=== PATIENT | male | born 1975 ===

== ENCOUNTER 2023-03-24 16:18 | Outpatient (REF) | payer OTHER, SELFPAY ==
[2023-03-24 18:13] LABS: Hemoglobin A1C 5.5 % (<5.7)
[2023-03-26 11:08] LABS: HIV-1/2 Ag & Ab Screen Negative (Negative)
[2023-03-26 14:36] LABS: Chlamydia Result Negative (Negative); GC Result Negative (Negative)
[2023-03-28 10:56] LABS: Syphilis Serology (RPR) Negative (Negative)
[2023-03-28 11:01] LABS: Hepatitis C Ab w Rflx HCV PCR Negative (Negative)
[2023-03-28 11:08] LABS: HBs Antibody, Quant <3.1 mIU/mL (See Note); Hepatitis B Surface Ab Negative (See Note)
== END 2023-03-24 16:19 | disposition home or self-care (01) ==
LOC: NCHCN 16:18
PROVIDERS: Visit Provider Nurse Practitioner Family
DX: Z11.3 Encounter for screening for infections with a predominantly sexual mode of transmission (principal); R73.03 Prediabetes; Z11.4 Encounter for screening for human immunodeficiency virus [HIV]; Z11.59 Encounter for screening for other viral diseases
CPT/HCPCS: 86706; 86803; 87389; 87491; 87591; 83036; 86592